=== PATIENT | female | born 1950 | race Caucasian/White ===

== ENCOUNTER 2016-11-12 11:28 | Emergency (ER) | payer MEDICARE ==
[~2016-11-12] VITALS: Ht 149.9 cm; Wt 58.2 kg
[~2016-11-12 11:28] MED LIST: [UNRECOGNIZED DRUG - REMARK]
[2016-11-12 12:35] VITALS: BP 155/71
== END 2016-11-12 15:25 | disposition home or self-care (01) ==
LOC: ED 12:39
DX: R06.00 Dyspnea, unspecified (principal); I10 Essential (primary) hypertension; Z88.1 Allergy status to other antibiotic agents
CPT/HCPCS: 71010; 93005; 99284

== ENCOUNTER 2018-01-21 08:29 | Observation (INO) | payer MEDICARE ==
[~2018-01-21] VITALS: Ht 152.4 cm; Wt 49.3 kg
[2018-01-21] MEDS ORDERED: ASPIRIN 81 MG TABLET CHEW PO ONE (09:00)
[2018-01-21] MEDS ORDERED: ASPIRIN 325 MG TABLET ONE (09:10)
[2018-01-21] MEDS ORDERED: ASPIRIN 81 MG TABLET CHEW ONE (09:25)
[2018-01-21 09:28] LABS: BASOPHILS # (AUTO) 0.02 x10^3/uL (0-0.1); BASOPHILS % (AUTO) 0 % (0-1); EOSINOPHILS # (AUTO) 0.05 x10^3/uL (0-0.4); EOSINOPHILS % (AUTO) 1 % (1-7); LYMPHOCYTES # (AUTO) 1.38 x10^3/uL (1-3.4); LYMPHOCYTES % (AUTO) 34 % (22-44); MD NO; MEAN CORPUSCULAR HEMOGLOBIN 30.1 pg (27.0-34.8); MEAN CORPUSCULAR HGB CONC 32.2 g/dL (32.4-35.8); MEAN CORPUSCULAR VOLUME 93.7 fL (80-100); MEAN PLATELET VOLUME 8.1 fL (7.4-10.4); MONOCYTES # (AUTO) 0.34 x10^3/uL (0.2-0.8); MONOCYTES % (AUTO) 8 % (2-9); NEUTROPHILS % (AUTO) 57 % (42-75); PLATELET COUNT 241 x10^3/uL (130-400); RED BLOOD COUNT 3.98 x10^6/uL (3.82-5.3); RED CELL DISTRIBUTION WIDTH 14.1 % (9.6-15.2)
[2018-01-21 09:37] LABS: ALANINE AMINOTRANSFERASE 27 U/L (12-78); ALBUMIN 3.6 g/dL (3.4-5.0); ANION GAP 6 mmol/L (5-15); CALCIUM 8.9 mg/dL (8.5-10.1); CHLORIDE 109 mmol/L (98-107); CREATININE 0.75 mg/dL (0.55-1.02)
[2018-01-21 09:41] LABS: ALKALINE PHOSPHATASE 146 U/L (45-117); BILIRUBIN,TOTAL 0.3 mg/dL (0.2-1.0); TOTAL PROTEIN 7.7 g/dL (6.4-8.2); TROPONIN I 0.035 ng/mL (0.000-0.045)
[2018-01-21 12:49] VITALS: BP 169/63
[2018-01-21] MEDS ORDERED: ONDANSETRON ODT 4 MG PO PRN (13:00)
[2018-01-21] MEDS ORDERED: POLYETHYLENE GLYCOL 17 GM PACKET PO PRN (13:00)
[2018-01-21] MEDS ORDERED: NITROGLYCERIN 0.4 MG BOTTLE (25 TABS) SL PRN ×2 (13:00)
[2018-01-21] MEDS ORDERED: NITROGLYCERIN 0.4 MG/SPRAY SL PRN (13:00)
[2018-01-21] MEDS ORDERED: ENALAPRILAT 1.25 MG/ML, 2ML IVPush PRN (13:00)
[2018-01-21] MEDS ORDERED: DOCUSATE 100 MG CAPSULE PO PRN (13:00)
[2018-01-21] MEDS ORDERED: morphine SULFATE 10 MG/ML, 1ML IVPush PRN (13:00)
[2018-01-21] MEDS ORDERED: ACETAMINOPHEN 325 MG TABLET PO PRN (13:00)
[2018-01-21 15:17] LABS: TROPONIN I 0.032 ng/mL (0.000-0.045)
[2018-01-21] MEDS: HEPARIN 5,000 UNITS/ML, 1ML SQ SCH ×2 (16:07→23:58)
[2018-01-21] MEDS ORDERED: LISINOPRIL 20 MG TABLET PO SCH (18:00)
[2018-01-21 19:08] VITALS: BP 115/71
[2018-01-21 21:38] LABS: TROPONIN I < 0.015 ng/mL (0.000-0.045)
[2018-01-22 00:04] VITALS: BP 97/57
[2018-01-22] MEDS: ASPIRIN 81 MG TABLET EC PO SCH (05:10)
[2018-01-22 07:22] VITALS: BP 122/66
[2018-01-22] MEDS: LISINOPRIL 10 MG TABLET PO SCH (08:27)
[2018-01-22] MEDS: HEPARIN 5,000 UNITS/ML, 1ML SQ SCH ×2 (08:28→16:00)
[2018-01-22] MEDS ORDERED: REGADENOSON 0.4 MG/5 ML SYRINGE ONE (10:23)
[2018-01-22 13:34] VITALS: BP 130/93
[2018-01-22 18:38] VITALS: BP 121/77
[2018-01-23] MEDS: HEPARIN 5,000 UNITS/ML, 1ML SQ SCH ×3 (00:06→16:00)
[2018-01-23 00:16] VITALS: BP 124/74
[2018-01-23] MEDS: ASPIRIN 81 MG TABLET EC PO SCH (05:23)
[2018-01-23 07:21] VITALS: BP 115/70
[2018-01-23] MEDS: LISINOPRIL 10 MG TABLET PO SCH (07:52)
[2018-01-23] MEDS ORDERED: LISI-167 PO (12:16)
[2018-01-23 12:28] VITALS: BP 118/74
== END 2018-01-23 16:41 | disposition home or self-care (01) ==
LOC: ED 09:08 → EDIP 11:43 → INTOOBSV 11:43 → 5SO 12:35 → DCLOUNGE 01-23 16:26
PROVIDERS: ADMIT Family Medicine; ATTEND Family Medicine
DX: R07.89 Other chest pain (principal); I10 Essential (primary) hypertension; F03.90 Unspecified dementia, unspecified severity, without behavioral disturbance, psychotic disturbance, mood disturbance, and anxiety; E11.9 Type 2 diabetes mellitus without complications; E66.9 Obesity, unspecified; Z79.82 Long term (current) use of aspirin; Z86.73 Personal history of transient ischemic attack (TIA), and cerebral infarction without residual deficits
CPT/HCPCS: 36415; 71045; 78452; 80053; 83880; 84484; 85025; 85379; 93005; 93017; 93306; 99285; A9502; C9898; G0378; J1644; J2785

== ENCOUNTER 2020-12-25 11:33 | Inpatient (IN) | payer MEDICARE ==
[~2020-12-25] VITALS: Ht 165.1 cm; Wt 75.3 kg
[~2020-12-25 11:33] MED LIST changes: +LISI-167 PO
--- NOTE | 2020-12-25 12:57 | NUR ---
TASK RN: PT RESTING ON MIGUE IN NAD. VSS.
--- NOTE | 2020-12-25 13:05 | NUR ---
Dr. Pradhan at bedside.
--- NOTE | 2020-12-25 13:21 | NUR ---
DAVID YEUNG [phone] PRIMARY CONTACT AND CAREGIVER.
[2020-12-25 13:25] LABS: BASOPHILS % (AUTO) 0 % (0-1); EOSINOPHILS % (AUTO) 0 % (1-7); LYMPHOCYTES % (AUTO) 4 % (22-44); MEAN CORPUSCULAR HEMOGLOBIN 27.3 pg (27.0-34.8); MEAN CORPUSCULAR HGB CONC 32.1 g/dL (32.4-35.8); MEAN PLATELET VOLUME 8.3 fL (7.4-10.4); MONOCYTES % (AUTO) 5 % (2-9); NEUTROPHILS % (AUTO) 90 % (42-75); PLATELET COUNT 184 x10^3/uL (130-400); RED BLOOD COUNT 3.83 x10^6/uL (3.82-5.3); RED CELL DISTRIBUTION WIDTH 18.8 % (9.6-15.2)
[2020-12-25 13:37] LABS: ALANINE AMINOTRANSFERASE 29 U/L (12-78); ALBUMIN 3.1 g/dL (3.4-5.0); ANION GAP 5 mmol/L (5-15); CALCIUM 8.4 mg/dL (8.5-10.1); CHLORIDE 105 mmol/L (98-107); CREATININE 0.68 mg/dL (0.55-1.02)
[2020-12-25 13:38] LABS: INTERNATIONAL NORMALIZED RATIO 0.97 (0.93-1.1); PROTHROMBIN TIME 10.4 Seconds (9.6-11.5)
[2020-12-25 13:39] LABS: ALKALINE PHOSPHATASE 137 U/L (45-117); BILIRUBIN,TOTAL 0.4 mg/dL (0.2-1.0); TOTAL PROTEIN 7.2 g/dL (6.4-8.2)
--- NOTE | 2020-12-25 13:58 | NUR ---
PT NEPHEW CONCERNED ABOUT PT LIVING ALONE HER DEMENTIA SEEMS TO BE WORSENING. SPOKE WITH ERP ABOUT THIS, SERVICE RIG OPERATOR CONSULT ORDERED.
--- NOTE | 2020-12-25 15:20 | NUR ---
BREAK NOTE: PT.'S STRAIGHT CATH WAS DONE. PT. HAS THICK YELLOW DRAINAGE PRESENT IN THE STRAIGHT CATH, PT.'S URINE IS MALODOROUS AND PURULENT. QUANTITY WAS INSUFFICIENT. PT. FEELS WARM TO THE TOUCH. RECTAL TEMP WAS 100.2. DISCUSSED FINDINGS WITH DR. RODGERS. ORDERS RECEIVED AND CARRIED OUT. PT. WAS PLACED IN A POSITION OF COMFORT, HOB IS ELEVATED GREATER THAN 30 DEGREES. PT. HAS BLANKETS IN PLACE FOR WARMTH. IV FLUIDS ARE INFUSING. SIDERAILS REMAIN UP X 2 WITH THE CALL LIGHT IN REACH. REPORT GIVEN TO THE PRIMARY RN.
[2020-12-25] MEDS ORDERED: SODIUM CHLORIDE 0.9% 1,000ML IVBOLUS ONE (15:30)
--- NOTE | 2020-12-25 15:48 | NUR ---
REPORT FILED WITH [facility]F [facility], PT NOT BEING ABLE TO CARE FOR SELF AT HOME. PT LIVES BY HERSELF. PT NEPHEW CALLED TO [facility] CONCERN WELL FOR PT INABILITY TO TAKE CARE OF HERSELF. TOUCH UP PAINTER AWARE OF SITUATION, ORDER FOR EVAL WAS PLACED.
[2020-12-25] MEDS ORDERED: SERTRALINE PO (16:16)
[2020-12-25] MEDS ORDERED: NAMENDA PO (16:16)
--- NOTE | 2020-12-25 16:50 | NUR ---
STRAIGHT CATH PERFORMED, URINE OBTAINED AND SENT TO LAB. PT REMOVED FROM WET SHEETS, CLEAN LINEN AND FRESH GIOVANNI PADS PLACED UNDER PT. HOSPITALIST IN TO SEE PT.
[2020-12-25] MEDS ORDERED: GABAPENTIN 300 MG CAPSULE PO PRN (17:00)
[2020-12-25] MEDS ORDERED: GUAIFENESIN/DM 200-20MG, 10ML UDC PO PRN (17:00)
[2020-12-25] MEDS ORDERED: BACLOFEN 10 MG TABLET PO PRN (17:00)
[2020-12-25] MEDS ORDERED: hydrALAzine 20 MG/ML, 1ML IVPush PRN (17:00)
[2020-12-25] MEDS ORDERED: HYDROcodone/APAP 5/325 TABLET PO PRN (17:00)
[2020-12-25] MEDS ORDERED: BUTALB/APAP/CAFFEINE 50MG/325MG/40MG PO PRN (17:00)
[2020-12-25] MEDS ORDERED: ONDANSETRON ODT 4 MG PO PRN (17:00)
[2020-12-25] MEDS ORDERED: ACETAMINOPHEN 325 MG TABLET PO PRN (17:00)
[2020-12-25] MEDS ORDERED: ONDANSETRON 2MG/ML, 2ML IVPush PRN (17:00)
[2020-12-25] MEDS ORDERED: ENALAPRILAT 1.25 MG/ML, 2ML IVPush PRN (17:00)
[2020-12-25 17:10] LABS: MICROSCOPIC AUTO
[2020-12-25 17:36] LABS: FREE T4 (FREE THYROXINE) 0.95 ng/dL (0.76-1.46)
--- NOTE | 2020-12-25 17:48 | NUR ---
FLOOR RN UNAVAILABLE AT THIS TIME TO RECEIVE REPORT. FLOOR RN TO CALL ED BACK
--- NOTE | 2020-12-25 17:55 | NUR ---
REPORT GIVEN TO FLOOR TRACE KEY RN
[2020-12-25 19:00] VITALS: BP 144/72
[2020-12-25] MEDS: AMPICILLIN/SULBACTAM 1,500 MG in SODIUM CHLORIDE 0.9% 50 ML IV SCH (19:50)
[2020-12-26 01:03] VITALS: BP 114/54
[2020-12-26] MEDS: AMPICILLIN/SULBACTAM 1,500 MG in SODIUM CHLORIDE 0.9% 50 ML IV SCH ×3 (04:08→20:12)
[2020-12-26 06:20] LABS: BASOPHILS % (AUTO) 0 % (0-1); EOSINOPHILS % (AUTO) 0 % (1-7); LYMPHOCYTES % (AUTO) 17 % (22-44); MEAN CORPUSCULAR HGB CONC 32.9 g/dL (32.4-35.8); MEAN PLATELET VOLUME 8.3 fL (7.4-10.4); MONOCYTES % (AUTO) 7 % (2-9); NEUTROPHILS % (AUTO) 76 % (42-75); PLATELET COUNT 145 x10^3/uL (130-400); RED BLOOD COUNT 3.31 x10^6/uL (3.82-5.3); RED CELL DISTRIBUTION WIDTH 18.7 % (9.6-15.2)
[2020-12-26 06:34] LABS: CHLORIDE 108 mmol/L (98-107)
[2020-12-26 06:54] LABS: ALANINE AMINOTRANSFERASE 24 U/L (12-78); ALBUMIN 2.6 g/dL (3.4-5.0); ALKALINE PHOSPHATASE 113 U/L (45-117); ANION GAP 5 mmol/L (5-15); BILIRUBIN,TOTAL 0.8 mg/dL (0.2-1.0); CALCIUM 8.3 mg/dL (8.5-10.1); CREATININE 0.63 mg/dL (0.55-1.02); TOTAL PROTEIN 6.3 g/dL (6.4-8.2)
[2020-12-26 08:13] VITALS: BP 163/69
[2020-12-26] MEDS: SENNA/DOCUSATE TABLET PO SCH (10:04)
[2020-12-26 14:20] VITALS: BP 137/82
[2020-12-26 18:56] VITALS: BP 125/73
[2020-12-26] MEDS: POTASSIUM CHLORIDE 20 MEQ TAB.ER.PRT PO SCH (19:31)
[2020-12-27 01:57] VITALS: BP 135/65
[2020-12-27] MEDS: AMPICILLIN/SULBACTAM 1,500 MG in SODIUM CHLORIDE 0.9% 50 ML IV SCH ×2 (04:19→11:50)
[2020-12-27 06:03] LABS: BASOPHILS % (AUTO) 0 % (0-1); EOSINOPHILS % (AUTO) 1 % (1-7); LYMPHOCYTES % (AUTO) 31 % (22-44); MEAN CORPUSCULAR HGB CONC 32.8 g/dL (32.4-35.8); MEAN PLATELET VOLUME 8.1 fL (7.4-10.4); MONOCYTES % (AUTO) 9 % (2-9); NEUTROPHILS % (AUTO) 59 % (42-75); PLATELET COUNT 135 x10^3/uL (130-400); RED BLOOD COUNT 3.22 x10^6/uL (3.82-5.3)
[2020-12-27 06:17] LABS: ALBUMIN 2.5 g/dL (3.4-5.0); ANION GAP 4 mmol/L (5-15); CALCIUM 7.9 mg/dL (8.5-10.1); CHLORIDE 110 mmol/L (98-107); CREATININE 0.55 mg/dL (0.55-1.02)
[2020-12-27 07:47] VITALS: BP 172/84
[2020-12-27] MEDS ORDERED: ENALAPRILAT 1.25 MG/ML, 1ML ONE (07:58)
[2020-12-27 08:14] VITALS: BP 150/76
[2020-12-27] MEDS: POTASSIUM CHLORIDE 20 MEQ TAB.ER.PRT PO SCH ×2 (08:14→16:39)
[2020-12-27] MEDS: SENNA/DOCUSATE TABLET PO SCH (08:14)
[2020-12-27] MEDS ORDERED: POTASSIUM CHLORIDE 20 MEQ TAB.ER.PRT PO ONE (09:30)
[2020-12-27] MEDS: CEPHALEXIN 500 MG CAPSULE PO SCH ×2 (12:29→20:35)
[2020-12-27 13:14] VITALS: BP 148/92
[2020-12-27 18:41] VITALS: BP 145/84
[2020-12-28 00:03] VITALS: BP 140/72
[2020-12-28 05:46] LABS: BASOPHILS % (AUTO) 1 % (0-1); EOSINOPHILS % (AUTO) 2 % (1-7); LYMPHOCYTES % (AUTO) 29 % (22-44); MEAN CORPUSCULAR HEMOGLOBIN 27.5 pg (27.0-34.8); MEAN CORPUSCULAR HGB CONC 31.9 g/dL (32.4-35.8); MEAN PLATELET VOLUME 8.2 fL (7.4-10.4); MONOCYTES % (AUTO) 9 % (2-9); NEUTROPHILS % (AUTO) 60 % (42-75); PLATELET COUNT 153 x10^3/uL (130-400); RED BLOOD COUNT 3.63 x10^6/uL (3.82-5.3); RED CELL DISTRIBUTION WIDTH 18.9 % (9.6-15.2)
[2020-12-28 05:59] LABS: CHLORIDE 109 mmol/L (98-107)
[2020-12-28 06:03] LABS: ANION GAP 4 mmol/L (5-15); CALCIUM 8.8 mg/dL (8.5-10.1); CREATININE 0.56 mg/dL (0.55-1.02)
[2020-12-28 08:06] VITALS: BP 167/78
[2020-12-28] MEDS: CEPHALEXIN 500 MG CAPSULE PO SCH ×2 (08:22→20:48)
[2020-12-28] MEDS: SENNA/DOCUSATE TABLET PO SCH (08:22)
[2020-12-28] MEDS: POTASSIUM CHLORIDE 20 MEQ TAB.ER.PRT PO SCH ×2 (08:22→16:30)
[2020-12-28] MEDS ORDERED: SENN-211 PO (13:15)
[2020-12-28] MEDS ORDERED: CEPH-376 PO ×2 (13:15)
[2020-12-28] MEDS ORDERED: LISINOPRIL 10 MG TABLET ONE (13:24)
[2020-12-28] MEDS: LISINOPRIL 10 MG TABLET PO SCH (13:26)
[2020-12-28] MEDS: SERTRALINE 50MG TABLET PO SCH (13:29)
[2020-12-28 14:50] VITALS: BP 145/93
[2020-12-28 14:54] VITALS: BP 90/81
[2020-12-28 19:36] VITALS: BP 111/75
[2020-12-29 00:14] VITALS: BP 120/68
[2020-12-29 08:55] VITALS: BP 152/71
[2020-12-29] MEDS: LISINOPRIL 10 MG TABLET PO SCH (09:19)
[2020-12-29] MEDS: CEPHALEXIN 500 MG CAPSULE PO SCH ×2 (09:19→20:46)
[2020-12-29] MEDS: SENNA/DOCUSATE TABLET PO SCH (09:19)
[2020-12-29] MEDS: POTASSIUM CHLORIDE 20 MEQ TAB.ER.PRT PO SCH (09:19)
[2020-12-29] MEDS: SERTRALINE 50MG TABLET PO SCH (09:19)
[2020-12-29 15:00] VITALS: BP 141/72
[2020-12-29 19:58] VITALS: BP 136/70
[2020-12-30 00:05] VITALS: BP 138/66
[2020-12-30 08:30] VITALS: BP 111/64
[2020-12-30] MEDS: CEPHALEXIN 500 MG CAPSULE PO SCH ×2 (09:15→20:43)
[2020-12-30] MEDS: LISINOPRIL 10 MG TABLET PO SCH (09:15)
[2020-12-30] MEDS: SENNA/DOCUSATE TABLET PO SCH (09:15)
[2020-12-30] MEDS: SERTRALINE 50MG TABLET PO SCH (09:15)
[2020-12-30 14:31] VITALS: BP 101/59
[2020-12-30 20:15] VITALS: BP 96/55
[2020-12-31 01:44] VITALS: BP 103/66
[2020-12-31 07:57] VITALS: BP 121/73
[2020-12-31] MEDS: SENNA/DOCUSATE TABLET PO SCH (09:53)
[2020-12-31] MEDS: CEPHALEXIN 500 MG CAPSULE PO SCH ×2 (09:53→21:19)
[2020-12-31] MEDS: LISINOPRIL 10 MG TABLET PO SCH (09:53)
[2020-12-31] MEDS: SERTRALINE 50MG TABLET PO SCH (09:53)
[2020-12-31 15:16] VITALS: BP 104/59
[2020-12-31 19:36] VITALS: BP 133/76
[2021-01-01 01:44] VITALS: BP 102/61
[2021-01-01] MEDS: SENNA/DOCUSATE TABLET PO SCH (07:09)
[2021-01-01 07:32] VITALS: BP 115/69
[2021-01-01 09:11] VITALS: BP 134/77
[2021-01-01] MEDS: CEPHALEXIN 500 MG CAPSULE PO SCH ×2 (09:11→20:21)
[2021-01-01] MEDS: SERTRALINE 50MG TABLET PO SCH (09:12)
[2021-01-01] MEDS: LISINOPRIL 10 MG TABLET PO SCH (09:12)
[2021-01-01 13:21] VITALS: BP 118/75
[2021-01-01 19:55] VITALS: BP 125/67
[2021-01-02 02:06] VITALS: BP 105/68
[2021-01-02 07:38] VITALS: BP 128/76
[2021-01-02] MEDS: SERTRALINE 50MG TABLET PO SCH (08:43)
[2021-01-02] MEDS: CEPHALEXIN 500 MG CAPSULE PO SCH ×2 (08:43→22:02)
[2021-01-02] MEDS: LISINOPRIL 10 MG TABLET PO SCH (08:43)
[2021-01-02] MEDS: SENNA/DOCUSATE TABLET PO SCH (08:44)
[2021-01-02 13:42] VITALS: BP 122/68
[2021-01-02 19:38] VITALS: BP 99/56
[2021-01-03 01:39] VITALS: BP 108/63
[2021-01-03 07:55] VITALS: BP 129/67
[2021-01-03] MEDS: SENNA/DOCUSATE TABLET PO SCH (08:01)
[2021-01-03] MEDS: LISINOPRIL 10 MG TABLET PO SCH (08:01)
[2021-01-03] MEDS: SERTRALINE 50MG TABLET PO SCH (08:02)
[2021-01-03] MEDS: CEPHALEXIN 500 MG CAPSULE PO SCH (08:02)
[2021-01-03 13:34] VITALS: BP 106/72
[2021-01-03] MEDS ORDERED: BISACODYL 10 MG SUPP PR PRN (19:30)
[2021-01-03 20:10] VITALS: BP 144/76
[2021-01-03] MEDS: POLYETHYLENE GLYCOL 17 GM PACKET PO SCH (21:59)
[2021-01-04 02:06] VITALS: BP 114/76
[2021-01-04 08:34] VITALS: BP 129/75
[2021-01-04] MEDS: POLYETHYLENE GLYCOL 17 GM PACKET PO SCH (09:00)
[2021-01-04 09:02] LABS: ANION GAP 8 mmol/L (5-15); CALCIUM 9.4 mg/dL (8.5-10.1); CHLORIDE 105 mmol/L (98-107); CREATININE 0.59 mg/dL (0.55-1.02)
[2021-01-04] MEDS: SERTRALINE 50MG TABLET PO SCH (10:55)
[2021-01-04] MEDS: LISINOPRIL 10 MG TABLET PO SCH (10:55)
[2021-01-04] MEDS: SENNA/DOCUSATE TABLET PO SCH (10:56)
[2021-01-04 14:15] VITALS: BP 120/77
[2021-01-12] MEDS ORDERED: MEMA10TA56 PO (18:07)
== END 2021-01-04 16:10 | DRG 872 ==
LOC: ED 12:08 → EDIP 16:09 → 4NE 18:12
PROVIDERS: ADMIT Hospitalist; ATTEND Internal Medicine
PROC: 0T9B30Z Drainage of Bladder with Drainage Device, Percutaneous Approach (ICD-10-PCS; principal; 2020-12-25)
DX: A41.9 Sepsis, unspecified organism (principal); M62.82 Rhabdomyolysis; L03.115 Cellulitis of right lower limb; L03.116 Cellulitis of left lower limb; N39.0 Urinary tract infection, site not specified; R62.7 Adult failure to thrive; I11.9 Hypertensive heart disease without heart failure; F39 Unspecified mood [affective] disorder; W18.39XA Other fall on same level, initial encounter; Z20.822 Contact with and (suspected) exposure to COVID-19; F03.90 Unspecified dementia, unspecified severity, without behavioral disturbance, psychotic disturbance, mood disturbance, and anxiety; B96.20 Unspecified Escherichia coli [E. coli] as the cause of diseases classified elsewhere; E87.6 Hypokalemia; S00.81XA Abrasion of other part of head, initial encounter; Z91.81 History of falling; Z86.73 Personal history of transient ischemic attack (TIA), and cerebral infarction without residual deficits; Z85.828 Personal history of other malignant neoplasm of skin; Y93.89 Activity, other specified; Y92.89 Other specified places as the place of occurrence of the external cause; Y99.8 Other external cause status; Z88.1 Allergy status to other antibiotic agents; Z68.27 Body mass index [BMI] 27.0-27.9, adult; Z90.49 Acquired absence of other specified parts of digestive tract; Z98.84 Bariatric surgery status
CPT/HCPCS: 36415; 70450; 71045; 80048; 80053; 80069; 81001; 82550; 83735; 84100; 84439; 84443; 84481; 85025; 85610; 85730; 87077; 87086; 87186; 87635; 93005; 96360; 96361; G0378; 92523-GN; J0295; J7030